=== PATIENT | female | born 1945 | race Caucasian/White ===

== ENCOUNTER 2019-08-11 01:29 | Emergency (ER) | payer BC, SELFPAY ==
[2019-08-11 01:33] VITALS: BP 195/58; PULSE 72; RESP 18; TEMP 36.3; O2SAT 99
[2019-08-11 03:29] VITALS: BP 212/81; PULSE 75; RESP 18; TEMP 36.3; O2SAT 99
--- NOTE | 2019-08-11 03:32 | PC.NURSE ---
Informed shuttle fixer of patient's BP. shuttle fixer stated a room is being cleaned at this time for patient.
[2019-08-11 04:35] VITALS: BP 177/110; PULSE 63; RESP 17; O2SAT 100
--- NOTE | 2019-08-11 05:27 | ECG_ITS ---
Measurements Intervals [place] Rate: 61 P: AK: 0 QRS: 0 QRSD: 90 T: 41 QT: 375 QTc: 379 Interpretive Statements ATRIAL FIBRILLATION DELAYED PRECORDIAL R/S TRANSITION BASELINE ARTIFACT- II, III, AVF ABNORMAL ECG Electronically Signed On 08-11-2019 7:28:31 CDT by Bart Levy D.O.
[2019-08-11 05:44] LABS: Basophils Absolute Auto 0.1 K/mm3 (0.0-0.1); Basophils Percent Auto 0.6 % (0.2-1.2); Eosinophils Absolute Auto 0.6 K/mm3 (0-0.3); Eosinophils Percent Auto 6.8 % (0-4.4); Hematocrit 40.8 % (37.0-47.0); Hemoglobin 13.5 g/dL (12.0-15.0); Immature Granulocyte Absolute 0.03 K/mm3 (0.00-0.031); Immature Granulocyte Percent A 0.3 % (0-0.5); Lymphocytes Absolute Auto 1.31 K/mm3 (0.9-3.2); Lymphocytes Percent Auto 14.9 % (18.3-44.2); Mean Corpuscular HGB Conc 33.1 g/dl (32-36); Mean Corpuscular Hemoglobin 31.5 pg (26-34); Mean Corpuscular Volume 95.1 fl (80-100); Mean Platelet Volume 9.8 fl (7.4-10.4); Monocytes Absolute Auto 0.7 K/mm3 (0.1-0.6); Monocytes Percent Auto 7.5 % (2.6-8.5); Neutrophils Absolute Auto 6.1 K/mm3 (1.3-6.7); Neutrophils Percent Auto 69.9 % (45.5-73.1); Platelet Count Result 163 k/mm3 (150-375); Red Blood Count 4.29 M/mm3 (4.2-5.4); Red Cell Distribution Width 12.7 % (11.5-14.5); White Blood Count 8.8 K/mm3 (4.5-10.0)
[2019-08-11 05:59] LABS: Blood Urea Nitrogen 31 mg/dL (7-17); Calcium 9.3 mg/dL (8.4-10.2); Carbon Dioxide 24 mmol/L (22-30); Chloride 105 mmol/L (98-107); Estimated CRCL calculation 46 ml/min; Estimated Glomerular Filt Rate 44; Glucose 107 mg/dL (65-105); Potassium 4.6 mmol/L (3.4-5.0); Sodium 135 mmol/L (137-145)
--- NOTE | 2019-08-11 06:28 | ED.RECABL ---
HPI - Recheck/Abnormal Lab/Rx General Chief Complaint: Recheck/Abnormal Lab/Rx Stated Complaint: High BP, rash Time Seen by Provider: 08/11/19 05:57 Source: patient Mode of arrival: ambulatory Limitations: no limitations History of Present Illness HPI narrative: This patient is a 74 year old female with history of hypertension who presents for evaluation of elevated blood pressure. Patient states over the past month she has been checking her blood pressure more frequently. She has noticed that her blood pressure has been becoming more elevated. Her blood pressures has been running in the 150s /90s. Last night she states she checked it and it was in 200s systolic. She denies dizziness, chest pain, or new shortness of breath. She has not called her primary care physician to discuss her concern about her blood pressure. She denies focal deficits, denies visual changes. Related Data Home Medications Medication Instructions Recorded Confirmed albuterol sulfate [ProAir HFA] 1 - 2 puff INHALATION DIRECTED 08/11/19 PRN apixaban [Eliquis] 5 mg PO BID 08/11/19 carvedilol 25 mg PO DAILY 08/11/19 clobetasol 50 applic TOPICAL DAILY 08/11/19 glipizide 2.5 mg PO DAILY 08/11/19 metformin 500 mg PO DAILY 08/11/19 valsartan-hydrochlorothiazide 1 tablet PO DAILY 08/11/19 Allergies Allergy/AdvReac Type Severity Reaction Status Date / Time No Known Allergies Allergy Verified 08/11/19 01:36 Review of Systems Review of Systems: All systems reviewed & are unremarkable except as noted in HPI and below Constitutional: Constitutional: Denies chills and Denies fever(s) Eyes: Eyes: Denies change in vision and Denies photophobia Cardiovascular: Cardiovascular: Denies chest pain Respiratory: Respiratory: Denies cough Gastrointestinal: Gastrointestinal: Denies abdominal pain and Denies nausea PMFSH Past Medical History Medical History (Updated 08/11/19 @ 08:24 by Lorena Escalona MD) Atrial fibrillation Chronic hypertension Diabetes mellitus Osteoarthritis Sleep apnea Surgical History Surgical History (Updated 08/11/19 @ 08:25 by Lorena Escalona MD) H/O hernia repair H/O: hysterectomy Exam Narrative: Exam Narrative: GENERAL: Well-appearing, well-nourished, and in no acute distress. HEAD: Normocephalic, atraumatic EYES: PERRLA and EOMI, conjunctiva clear without discharge THROAT:Mucous membranes moist, Oropharynx normal without erythema, exudate, peritonsillar swelling or fluctuance NECK: Supple, without lymphadenopathy or mass RESPIRATORY: No respiratory distress, Airway patent, Respirations non-labored, Clear to auscultation without rales, rhonchi or wheeze HEART: Regular rate and rhythm. No murmur heard. Normal peripheral pulses. ABDOMEN: Soft, nontender, nondistended, normal active bowel sounds. No masses. No rebound or guarding, No organomegaly. EXTREMITIES: No edema, normal strength with full range of motion. SKIN: Warm, dry, normal color without rash NEURO: Alert and oriented x3. CN 2-12 grossly intact. No focal deficits. PSYCH: Normal mood and affect. Course Reevaluation(s) Reevaluation #1: PAtient presented with hypertension but she is asymptomatic. I have discussed with patient that she will need to speak with PCP about follow up. I do not think she urgently needs me to adjust BP as she is asymptomatic and her BP is now 159/68 Date: 08/11/19 Time: 06:33 Vital Signs Vital signs: Vital Signs Temperature 97.3 F L 08/11/19 01:33 Pulse Rate 72 08/11/19 01:33 Respiratory Rate 18 08/11/19 01:33 Blood Pressure 195/58 H 08/11/19 01:33 Pulse Oximetry 99 08/11/19 01:33 Temperature 97.3 F L 08/11/19 03:29 Pulse Rate 69 08/11/19 06:49 Respiratory Rate 16 08/11/19 06:49 Blood Pressure 159/68 H 08/11/19 06:49 Pulse Oximetry 96 08/11/19 06:49 MDM - Recheck/Abnormal Lab/Rx Lab Data Attestation: I reviewed the patient's lab results. Result diagram
[2019-08-11 06:49] VITALS: BP 159/68; PULSE 69; RESP 16; O2SAT 96
== END 2019-08-11 06:52 | disposition home or self-care (01) ==
PROVIDERS: Emergency Provider General Practice
DX: I10 Essential (primary) hypertension (principal); I48.91 Unspecified atrial fibrillation; E11.9 Type 2 diabetes mellitus without complications; M19.90 Unspecified osteoarthritis, unspecified site; G47.30 Sleep apnea, unspecified; Z79.84 Long term (current) use of oral hypoglycemic drugs; Z79.01 Long term (current) use of anticoagulants; R94.31 Abnormal electrocardiogram [ECG] [EKG]
CPT/HCPCS: 36415; 80048; 85025; 93005; 99283